=== PATIENT | female | born 1930 | race Caucasian/White ===

== ENCOUNTER 2021-02-07 15:06 | Emergency (ER) | payer MEDICARE ==
[2021-02-07 19:59] LABS: BASOPHIL 0.6 % (0-2); EOSINOPHIL 0.4 % (0-7); HCT 38.4 % (37.0-47.0); HGB 13.8 g/dl (12.5-16.0); LYMPHOCYTE 21.1 % (15-48); MCH 33.2 pg (25.0-31.0); MCHC 35.9 g/dL (32.0-36.0); MCV 92.3 fL (78.0-100.0); MONOCYTE 6.8 % (0-12); MPV 9.8 fL (6.0-9.5); NEUTROPHIL 70.7 % (41-80); NRBC 0; PLT 225 K/uL (150-400); RBC 4.16 M/uL (4.20-5.40); RDW 12.3 % (11.5-14.0)
[2021-02-07 20:22] LABS: ALBUMIN 3.8 g/dL (3.4-5.0); BILIRUBIN - TOTAL 0.7 mg/dL (0.2-1.0); BUN/CREAT RATIO (CALC) 12.5 RATIO; CREATININE 0.64 mg/dL (0.51-0.95); GLOBULIN (CALCULATION) 4.1 g/dL; POTASSIUM 3.6 mmol/L (3.5-5.1); TOTAL PROTEIN 7.9 g/dL (6.4-8.2)
[2021-02-07 21:20] LABS: BILIRUBIN NEGATIVE (NEGATIVE); BLOOD 1+ Ery/uL (NEGATIVE); CLARITY CLEAR (CLEAR); COLOR YELLOW (YELLOW); GLUCOSE (U) NORMAL (NORMAL); LEUKOCYTES NEGATIVE Leu/uL (NEGATIVE); NITRITE NEGATIVE (NEGATIVE); PROTEIN NEGATIVE (NEGATIVE); SPECIFIC GRAVITY 1.015 (1.001-1.030); UROBILINOGEN 0.2 mg/dL (0.2-1.0)
[2021-02-07 21:26] LABS: URINARY WBC RARE
[2021-02-07 21:27] LABS: BACTERIA TRACE; SQUAMOUS EPITHELIAL CELLS RARE
[2021-02-07] MEDS ORDERED: NAPROSYN250 MG PO (22:14)
== END 2021-02-07 22:27 | disposition home or self-care (01) ==
LOC: FER 15:06
PROVIDERS: Physician Assistant
DX: R10.9 Unspecified abdominal pain (principal); R31.9 Hematuria, unspecified; I10 Essential (primary) hypertension; Z88.5 Allergy status to narcotic agent
CPT/HCPCS: 36415; 80053; 81001; 85025